=== PATIENT | male | born 1985 | race Caucasian/White ===

== ENCOUNTER → 2016-11-09 | Outpatient (CLI) | payer OTHER ==
--- NOTE | 2016-11-09 16:54 | DIAGNOSTIC IMAGING REPORT ---
R ANKLE MIN 3 VIEWS ROUTINE HISTORY: 31 years-old Male WORK RELATED INJURY acute right ankle pain status post trauma COMPARISON: None available TECHNIQUE: 3 views of the right ankle FINDINGS: Moderate soft tissue swelling seen about the ankle, greatest anterolaterally with small joint effusion. 4 mm corticated bone fragment adjacent to the dorsal navicular suggests fragment osteophyte or remote fracture fragment. No acute fracture, dislocation or osteochondral defect. IMPRESSION: 1. Moderate anterolateral soft tissue swelling with small joint effusion. No acute fracture or dislocation. 2. Fragmented osteophyte or remote fracture fragment of the dorsal navicular. The above report was generated using voice recognition software. It may contain grammatical, syntax or spelling errors. Electronically signed by: Ricco Aviles M.D. 11/09/2016 4:52 PM Dictated Date/Time: 11/09/2016 4:51 PM
== END | disposition home or self-care (01) ==
LOC: C.RAD1850 16:17
PROVIDERS: ATTEND Nurse Practitioner Family
DX: M25.571 Pain in right ankle and joints of right foot (principal); M25.471 Effusion, right ankle

== ENCOUNTER → 2016-11-15 | Outpatient (CLI) | payer OTHER ==
--- NOTE | 2016-11-15 07:48 | DIAGNOSTIC IMAGING REPORT ---
ORBIT RADIOGRAPHS 3 VIEWS HISTORY: pre-MRI screening. COMPARISON: None. FINDINGS: There are no radiopaque foreign bodies identified within the orbits. IMPRESSION: No radiopaque foreign bodies identified within the orbits. Electronically signed by: Huber Mercado M.D. 11/15/2016 7:47 AM Dictated Date/Time: 11/15/2016 7:45 AM
--- NOTE | 2016-11-15 09:47 | DIAGNOSTIC IMAGING REPORT ---
MRI OF THE RIGHT ANKLE WITHOUT IV CONTRAST CLINICAL HISTORY: Right ankle injury. COMPARISON STUDY: Radiographs of the right ankle dated 11/09/2016. TECHNIQUE: MRI of the right ankle is performed utilizing various T1 and T2-weighted sequences in the axial, sagittal, and coronal planes. IV contrast was not administered for this examination. FINDINGS: Normal marrow signal intensity is preserved throughout the visualized bony structures. There is no MRI evidence of fracture. No osteochondral defect is seen in the talar dome. There is a joint effusion. The Achilles tendon is normal in morphology and signal intensity. There is trace fluid around the Achilles tendon suggesting mild Achilles paratenonitis. The anterior, posterior, and peroneal tendons are intact. There is fluid along the course of the peroneus tendons suggesting tenosynovitis. There is tearing at the talar insertion of the anterior talofibular ligament. There is also irregularity of the anterior tibiofibular ligament suggesting tear. Subcutaneous soft tissue edema and fluid is seen on the lateral aspect of the ankle. There is tearing of the calcaneofibular ligament. The deltoid ligament is intact. The spring ligament is normal as visualized. There is maintenance of normal fat within the sinus tarsi. The regional musculature is normal in bulk and signal intensity. IMPRESSION: 1. There is no MRI evidence of right ankle fracture. A joint effusion is noted. 2. There is tearing of the anterior talofibular ligament as well as probable tearing of the anterior tibiofibular ligament with overlying lateral soft tissue edema. The appearance suggests ankle sprain. Clinical correlation will be required. 3. Findings suggest mild Achilles paratenonitis. The Achilles tendon is intact. 4. Suggestion of tenosynovitis of the peroneal tendons. The fibers of the tendons are intact. Dictated: 11/15/2016 8:51 AM Transcribed: 11/15/2016 9:47 AM [email or web address] Electronically signed by: Hany Kohler M.D. 11/15/2016 10:02 AM Dictated Date/Time: 11/15/2016 8:51 AM
== END | disposition home or self-care (01) ==
LOC: C.RAD 07:20
PROVIDERS: ATTEND Nurse Practitioner Family
DX: S93.401A Sprain of unspecified ligament of right ankle, initial encounter (principal); X58.XXXA Exposure to other specified factors, initial encounter